=== PATIENT | male | born 1955 | race Caucasian/White ===

== ENCOUNTER 2021-08-14 10:30 | Observation (INO) | payer MEDICARE, OTHER ==
[2021-08-13 15:39] VITALS: BMI 34.1
[2021-08-19] MEDS ORDERED: Lidocaine 1% MPF 2 ML VIAL ONE (10:20)
[2021-08-19] MEDS ORDERED: Famotidine/PF 20 mg/2ml Vial ONE (10:43)
[2021-08-19] MEDS ORDERED: Phenylephrine 40 MG/NS 250 ML 250 ML ONE (11:39)
[2021-08-19] MEDS ORDERED: Propofol 1,000 MG/100 ML VIAL IV ONE (11:40)
[2021-08-19] MEDS ORDERED: ceFAZolin 2 GM/Dextrose 50 ML IVPB ONE (11:43)
[2021-08-19] MEDS ORDERED: ePHEDrine Sulfate 50 MG/10 ML VIAL ONE (11:52)
[2021-08-19] MEDS ORDERED: Ondansetron PF 4 MG/2 ML Vial ONE (11:52)
[2021-08-19] MEDS ORDERED: Dexamethasone 20 MG/5 ML VIAL ONE (11:52)
[2021-08-19] MEDS ORDERED: Rocuronium Bromide 10 MG/ML (10ML VIAL) ONE (11:52)
[2021-08-19] MEDS ORDERED: Lidocaine 1% PF 5 ML VIAL ONE (11:52)
[2021-08-19] MEDS ORDERED: PROPOFOL 20 ML ONE (11:52)
[2021-08-19] MEDS ORDERED: Midazolam HCl 2 mg/2 ml Vial ONE (11:52)
[2021-08-19] MEDS ORDERED: Fentanyl 250 MCG/5 ML VIAL ONE (11:52)
[2021-08-19] MEDS ORDERED: Glycopyrrolate 0.2 MG/ML 5 ML SYRINGE ONE (12:16)
[2021-08-19] MEDS ORDERED: Fentanyl 100 MCG/2 ML VIAL ONE ×2 (15:16→16:09)
[2021-08-19] MEDS ORDERED: HYDROcodone/Acetaminophen 10/325 mg Tablet PO PRN (15:37)
[2021-08-19] MEDS ORDERED: traMADol HCl 50 MG TAB PO PRN (15:37)
[2021-08-19] MEDS ORDERED: Ventolin HFA Inhaler 60 PUFF INHALER INH PRN (15:39)
[2021-08-19] MEDS ORDERED: Tamsulosin HCl 0.4 MG CAP PO PRN (15:39)
[2021-08-19] MEDS ORDERED: Gabapentin 400 MG CAP PO PRN (16:05)
[2021-08-19] MEDS: Morphine 4 MG/ML VIAL SLOW IVP PRN ×2 (17:41→22:30)
[2021-08-19] MEDS ORDERED: Albuterol Sulfate 2.5 mg/3 ml Neb NEB PRN (18:30)
[2021-08-19] MEDS: Aspirin 81 mg Enteric Coated Tablet PO SCH (20:29)
[2021-08-19] MEDS: HYDROcodone/Acetaminophen 10/325 mg Tablet PO SCH (20:29)
[2021-08-19] MEDS: clonazePAM 1 MG TAB PO SCH (20:30)
[2021-08-19] MEDS: Lisinopril 20 MG TAB PO SCH (20:35)
[2021-08-19] MEDS: Hydrochlorothiazide 25 MG TAB PO SCH (20:35)
[2021-08-19] MEDS: ceFAZolin 2 GM/Dextrose 50 ML 2 GM in Premix Bag 1 BAG IVPB SCH (20:50)
[2021-08-20] MEDS: ceFAZolin 2 GM/Dextrose 50 ML 2 GM in Premix Bag 1 BAG IVPB SCH (04:15)
[2021-08-20] MEDS: HYDROcodone/Acetaminophen 10/325 mg Tablet PO SCH (08:28)
[2021-08-20] MEDS: Aspirin 81 mg Enteric Coated Tablet PO SCH (08:28)
[2021-08-20] MEDS: Hydrochlorothiazide 25 MG TAB PO SCH (08:31)
[2021-08-20] MEDS: clonazePAM 1 MG TAB PO SCH (08:31)
[2021-08-20] MEDS: Lisinopril 20 MG TAB PO SCH (08:31)
[2021-08-20 08:42] VITALS: BP 151/71; TEMP 97.1
[2021-08-20] MEDS ORDERED: Ibuprofen 200 MG TAB PO SCH (09:00)
== END 2021-08-20 10:29 | disposition home or self-care (01) ==
LOC: CSHERHOLD 08-19 08:54 → INTOOBSV 08-19 08:54 → EDSTATUS 08-19 10:30 → CSHTELE 08-19 17:13
PROVIDERS: ADMIT Orthopaedic Surgery; ATTEND Orthopaedic Surgery
DX: M48.02 Spinal stenosis, cervical region (principal); M50.123 Cervical disc disorder at C6-C7 level with radiculopathy; J44.9 Chronic obstructive pulmonary disease, unspecified; I10 Essential (primary) hypertension; Z87.891 Personal history of nicotine dependence; Z98.1 Arthrodesis status; F32.A Depression, unspecified; Z79.899 Other long term (current) drug therapy; Z79.891 Long term (current) use of opiate analgesic
CPT/HCPCS: 22551; 22845; 22853; 72050; 96374; 96375; 96376; C1713 ×3; C1762; C1889; G0378 ×2; J0690; J1100; J2250; J2270; J2405; J2704; J3010; S0028

== ENCOUNTER 2021-11-07 14:58 | Outpatient (CLI) | payer MEDICARE, OTHER | END 2021-11-07 14:59 | disposition home or self-care (01) | LOC: CSHLAB 14:58 | PROVIDERS: ATTEND Internal Medicine | DX: Z20.822 Contact with and (suspected) exposure to COVID-19 (principal) | CPT/HCPCS: U0003; U0005 ==

== ENCOUNTER 2021-11-11 12:25 | Outpatient (CLI) | payer MEDICARE, OTHER | END 2021-11-11 12:26 | disposition home or self-care (01) | LOC: CSHCP 12:25 | PROVIDERS: ATTEND Internal Medicine | DX: J44.9 Chronic obstructive pulmonary disease, unspecified (principal) | CPT/HCPCS: 94060; 94726; 94729; 94760 ==